=== PATIENT | male | born 1985 | race African-American/Black ===

== ENCOUNTER 2016-08-28 06:26 | Emergency (ER) | payer OTHER ==
[~2016-08-28] VITALS: Ht 165.1 cm; Wt 61.0 kg
[2016-08-28 07:07] VITALS: BP 143/79
[2017-02-07] MEDS ORDERED: ELVI1TAB2 PO (02:49)
== END 2016-08-28 10:18 | disposition home or self-care (01) ==
LOC: ER 08:21
DX: Z53.21 Procedure and treatment not carried out due to patient leaving prior to being seen by health care provider (principal)